=== PATIENT | female | born 2000 | race Asian ===

== ENCOUNTER 2021-02-22 15:25 | Emergency (ER) | payer OTHER ==
[2021-02-22] MEDS ORDERED: Metoclopramide HCl 10 MG TAB ONE (15:55)
[2021-02-22] MEDS ORDERED: Acetaminophen 500 MG TAB ONE (15:55)
== END 2021-02-22 17:50 | disposition home or self-care (01) ==
LOC: ERS 15:25
DX: S06.0X0A Concussion without loss of consciousness, initial encounter (principal); Z79.899 Other long term (current) drug therapy; W17.89XA Other fall from one level to another, initial encounter
CPT/HCPCS: 70450; 71045; 72125

== ENCOUNTER 2024-01-29 16:17 | Emergency (ER) | payer SELFPAY, OTHER ==
[2024-01-29] MEDS ORDERED: Metoclopramide HCl 10 MG (2 mL) VIAL ONE (17:36)
[2024-01-29] MEDS ORDERED: diphenhydrAMINE 50 MG/ML VIAL ONE (17:36)
[2024-01-29] MEDS ORDERED: Sodium Chloride 0.9% 0 ML ONE (17:36)
== END 2024-01-29 18:46 | disposition home or self-care (01) ==
LOC: ERS 16:17
DX: S06.0X0A Concussion without loss of consciousness, initial encounter (principal); S16.1XXA Strain of muscle, fascia and tendon at neck level, initial encounter; F17.290 Nicotine dependence, other tobacco product, uncomplicated; V48.5XXA Car driver injured in noncollision transport accident in traffic accident, initial encounter
CPT/HCPCS: 70450; 72125; 96365; 96375; J1200; J2765